=== PATIENT | male | born 1975 | race Caucasian/White ===

== ENCOUNTER → 2018-10-24 | Outpatient (CLI) | payer BC ==
[2018-10-24 18:31] LABS: BASO # 0.1 10^3/uL (0.0-0.2); BASO % 0.7 % (0.0-1.0); EOS # 0.6 10^3/uL (0.0-0.50); EOS % 6.6 % (0.0-3.0); HEMATOCRIT 43.9 % (42.0-52.0); HEMOGLOBIN 14.3 g/dl (13.5-17.5); LYMPH # 2.1 10^3/uL (1.5-4.5); LYMPH % 21.8 % (24.0-44.0); MEAN CORPUSCULAR HEMOGLOBIN 31.2 pg (27.0-33.0); MEAN CORPUSCULAR HGB CONC 32.6 g/dl (32.0-36.5); MEAN CORPUSCULAR VOLUME 95.6 fl (80.0-96.0); MONO # 0.8 10^3/uL (0.0-0.8); MONO % 8.4 % (0.0-5.0); NEUTROPHILS # 5.9 10^3/uL (1.8-7.7); NEUTROPHILS % 62.2 % (36.0-66.0); PLATELET COUNT, AUTOMATED 331 10^3/uL (150-450); RED BLOOD COUNT 4.59 10^6/uL (4.30-6.10); WHITE BLOOD COUNT 9.5 10^3/uL (4.0-10.0)
[2018-10-24 18:42] LABS: ALBUMIN 3.9 GM/DL (3.2-5.2); ALT/SGPT 42 U/L (12-78); BILIRUBIN,TOTAL 0.4 MG/DL (0.2-1.0); BLOOD UREA NITROGEN 19 MG/DL (7-18); CALCIUM LEVEL 8.7 MG/DL (8.5-10.1); CARBON DIOXIDE LEVEL 30 MEQ/L (21-32); CHLORIDE LEVEL 106 MEQ/L (98-107); CHOLESTEROL LEVEL 181 MG/DL (<200); CHOLESTEROL RISK RATIO 2.784 (<5); CREATININE FOR GFR 1.07 MG/DL (0.70-1.30); FREE T4 0.99 NG/DL (0.76-1.46); GLOMERULAR FILTRATION RATE > 60.0 (>60); GLUCOSE, FASTING 90 MG/DL (70-100); HDL CHOLESTEROL 65 MG/DL (>40); LDL CHOLESTEROL 104 MG/DL (<100); NON-HDL-C 116 MG/DL; POTASSIUM SERUM 4.5 MEQ/L (3.5-5.1); SODIUM LEVEL 142 MEQ/L (136-145); TOTAL PROTEIN 7.2 GM/DL (6.4-8.2); TRIGLYCERIDES LEVEL 60 MG/DL (<150)
== END ==
LOC: M ADAMS 15:00
PROVIDERS: ATTEND Family Medicine
DX: Z00.00 Encounter for general adult medical examination without abnormal findings (principal); K21.9 Gastro-esophageal reflux disease without esophagitis

== ENCOUNTER → 2018-11-28 | Outpatient (CLI) | payer BC ==
--- NOTE | 2018-11-28 11:53 | REP ---
CHEST PA AND LATERAL: 11/28/2018. Clinical history: Chest discomfort. Comparison: 05/07/2006. Findings: Two-view show the lungs well inflated and clear. The heart, mediastinal and hilar contours are normal. Aorta and airway intact. I see no significant peribronchial thickening. Bones show no compression deformity of focal lesion in the spine. Chest bony structures without acute finding. No free air under the diaphragm. Impression: 1. No acute cardiopulmonary change. Electronically Signed by Jan Pham MD 11/28/2018 01:42 P
== END ==
LOC: M ADAMS 08:24
PROVIDERS: ATTEND Family Medicine
DX: R07.89 Other chest pain (principal)

== ENCOUNTER → 2019-04-24 | Outpatient (CLI) | payer BC ==
[2019-04-24 17:03] LABS: ALBUMIN 3.8 GM/DL (3.2-5.2); ALT/SGPT 39 U/L (12-78); BILIRUBIN,DIRECT 0.1 MG/DL (0.0-0.2); BILIRUBIN,TOTAL 0.7 MG/DL (0.2-1.0); BLOOD UREA NITROGEN 21 MG/DL (7-18); CALCIUM LEVEL 8.9 MG/DL (8.5-10.1); CARBON DIOXIDE LEVEL 29 MEQ/L (21-32); CHLORIDE LEVEL 109 MEQ/L (98-107); CREATININE FOR GFR 0.96 MG/DL (0.70-1.30); GLOMERULAR FILTRATION RATE > 60.0 (>60); GLUCOSE, FASTING 86 MG/DL (70-100); PHOSPHORUS LEVEL 3.4 MG/DL (2.5-4.9); POTASSIUM SERUM 4.1 MEQ/L (3.5-5.1); SODIUM LEVEL 141 MEQ/L (136-145); TOTAL PROTEIN 7.2 GM/DL (6.4-8.2)
[2019-04-24 17:28] LABS: HEMATOCRIT 45.1 % (42.0-52.0); HEMOGLOBIN 14.8 g/dl (13.5-17.5); MEAN CORPUSCULAR HEMOGLOBIN 30.8 pg (27.0-33.0); MEAN CORPUSCULAR HGB CONC 32.8 g/dl (32.0-36.5); PLATELET COUNT, AUTOMATED 302 10^3/uL (150-450); WHITE BLOOD COUNT 6.2 10^3/uL (4.0-10.0)
== END ==
LOC: M ADAMS 09:08
PROVIDERS: ATTEND Podiatrist Foot & Ankle Surgery
DX: B35.1 Tinea unguium (principal); Z79.899 Other long term (current) drug therapy

== ENCOUNTER → 2020-02-26 | Outpatient (CLI) | payer BC ==
--- NOTE | 2020-02-26 10:23 | REP ---
Paranasal sinus series: Four views. History: Chronic sinusitis. Findings: Four views of the paranasal sinuses demonstrate intact orbital margins. Paranasal sinus margins are intact. Frontal sinuses and maxillary sinuses are clear. There is no evidence of ethmoid or sphenoid sinus opacification. Mastoid aeration is normal and symmetric. Bony nasal septum is midline and nasal turbinate soft tissues appear symmetric. Impression: Negative radiographs of the paranasal sinuses. Electronically Signed by Taj Scruggs MD 02/26/2020 10:15 A
== END ==
LOC: M ADAMS 09:04
PROVIDERS: ATTEND Physician Assistant
DX: J32.9 Chronic sinusitis, unspecified (principal)

== ENCOUNTER → 2021-04-16 | Outpatient (REF) | payer BC ==
[2021-04-16 13:03] LABS: BASO # 0.1 10^3/uL (0.0-0.2); BASO % 1.3 % (0.0-1.0); EOS # 0.6 10^3/uL (0.0-0.5); EOS % 9.7 % (0.0-3.0); HEMOGLOBIN 14.2 g/dl (13.5-17.5); LYMPH # 2.3 10^3/uL (1.5-5.0); LYMPH % 36.9 % (24.0-44.0); MEAN CORPUSCULAR HEMOGLOBIN 30.7 pg (27.0-33.0); MEAN CORPUSCULAR VOLUME 92.9 fl (80.0-96.0); MONO # 0.7 10^3/uL (0.0-0.8); NEUTROPHILS # 2.5 10^3/uL (1.5-8.5); NEUTROPHILS % 40.9 % (36.0-66.0); PLATELET COUNT, AUTOMATED 289 10^3/uL (150-450); RED BLOOD COUNT 4.63 10^6/uL (4.30-6.10); WHITE BLOOD COUNT 6.2 10^3/uL (4.0-10.0)
[2021-04-16 13:28] LABS: ALBUMIN 3.9 GM/DL (3.2-5.2); ALT/SGPT 35 U/L (12-78); BILIRUBIN,TOTAL 0.5 MG/DL (0.2-1.0); BLOOD UREA NITROGEN 24 MG/DL (7-18); CARBON DIOXIDE LEVEL 30 MEQ/L (21-32); CHLORIDE LEVEL 107 MEQ/L (98-107); CHOLESTEROL LEVEL 189 MG/DL (<200); CHOLESTEROL RISK RATIO 3.098 (<5); CREATININE FOR GFR 0.92 MG/DL (0.70-1.30); GLOMERULAR FILTRATION RATE > 60.0 (>60); GLUCOSE, FASTING 88 MG/DL (70-100); HDL CHOLESTEROL 61 MG/DL (>40); LDL CHOLESTEROL 115 MG/DL (<100); NON-HDL-C 128 MG/DL; POTASSIUM SERUM 4.4 MEQ/L (3.5-5.1); SODIUM LEVEL 140 MEQ/L (136-145); TOTAL PROTEIN 7.1 GM/DL (6.4-8.2); TRIGLYCERIDES LEVEL 64 MG/DL (<150)
== END ==
LOC: M SFHCADAM 09:53
PROVIDERS: ATTEND Family Medicine
DX: J30.89 Other allergic rhinitis (principal); B36.0 Pityriasis versicolor; B35.6 Tinea cruris; L84 Corns and callosities

== ENCOUNTER → 2021-05-22 | Outpatient (REF) | payer BC ==
[2021-05-22 14:03] LABS: C REACTIVE PROTEIN QUANTITATIV < 0.30 MG/DL (0.00-0.30); RHEUMATOID FACTOR QUANT < 10.0 IU/ML (<15.0)
[2021-05-23 16:09] LABS: ANTINUCLEAR ANTIBODIES DIRECT Negative (Negative); Lyme Disease IgG/IgM Antibodie <0.91 ISR (0.00-0.90); Lyme Disease IgM Ab Quantitati <0.80 index (0.00-0.79)
== END ==
LOC: M SFHCADAM 08:02
PROVIDERS: ATTEND Family Medicine
DX: M25.59 Pain in other specified joint (principal); W57.XXXA Bitten or stung by nonvenomous insect and other nonvenomous arthropods, initial encounter; R53.83 Other fatigue

== ENCOUNTER → 2022-03-29 | Outpatient (REF) | payer BC ==
[2022-03-29 13:23] LABS: BASO # 0.1 10^3/uL (0.0-0.2); BASO % 1.2 % (0.0-1.0); EOS # 0.5 10^3/uL (0.0-0.5); EOS % 8.6 % (0.0-3.0); HEMOGLOBIN 15.2 g/dl (13.5-17.5); LYMPH # 1.9 10^3/uL (1.5-5.0); MEAN CORPUSCULAR HGB CONC 33.8 g/dl (32.0-36.5); MEAN CORPUSCULAR VOLUME 91.8 fl (80.0-96.0); MONO # 0.6 10^3/uL (0.0-0.8); MONO % 10.3 % (2.0-8.0); NEUTROPHILS # 2.8 10^3/uL (1.5-8.5); NEUTROPHILS % 47.7 % (36.0-66.0); PLATELET COUNT, AUTOMATED 301 10^3/uL (150-450); WHITE BLOOD COUNT 5.9 10^3/uL (4.0-10.0)
[2022-03-29 13:37] LABS: ALBUMIN 4.1 GM/DL (3.2-5.2); ALT/SGPT 38 U/L (12-78); BILIRUBIN,TOTAL 0.6 MG/DL (0.2-1.0); BLOOD UREA NITROGEN 21 MG/DL (7-18); CALCIUM LEVEL 9.4 MG/DL (8.5-10.1); CARBON DIOXIDE LEVEL 27 MEQ/L (21-32); CHLORIDE LEVEL 109 MEQ/L (98-107); CHOLESTEROL LEVEL 203 MG/DL (<200); CREATININE FOR GFR 1.05 MG/DL (0.70-1.30); GLOMERULAR FILTRATION RATE > 60.0 (>60); GLUCOSE, FASTING 98 MG/DL (70-100); HDL CHOLESTEROL 58 MG/DL (>40); LDL CHOLESTEROL 132 MG/DL (<100); NON-HDL-C 145 MG/DL; POTASSIUM SERUM 4.1 MEQ/L (3.5-5.1); RHEUMATOID FACTOR QUANT < 10.0 IU/ML (<15.0); SODIUM LEVEL 142 MEQ/L (136-145); TOTAL PROTEIN 7.4 GM/DL (6.4-8.2); TRIGLYCERIDES LEVEL 63 MG/DL (<150)
[2022-03-29 14:03] LABS: ERYTHROCYTE SEDIMENTATION RATE 5 mm/hr (0-15)
[2022-03-29 19:33] LABS: HEPATITIS B SURFACE ANTIBODY NEGATIVE (POSITIVE)
[2022-03-29 19:38] LABS: HEPATITIS B SURFACE ANTIGEN NEGATIVE (NEGATIVE)
[2022-03-30 19:07] LABS: ANTINUCLEAR ANTIBODIES DIRECT Negative (Negative); HEPATITIS B CORE ANTIBODY IGG Negative (Negative)
== END ==
LOC: M SFHCADAM 07:56
PROVIDERS: ATTEND Family Medicine
DX: M25.50 Pain in unspecified joint (principal); Z00.00 Encounter for general adult medical examination without abnormal findings; Z11.59 Encounter for screening for other viral diseases

== ENCOUNTER 2022-07-07 09:24 | Emergency (ER) | payer BC ==
[~2022-07-07] VITALS: Ht 157.5 cm; Wt 88.6 kg
[2022-07-07] MEDS ORDERED: OMEP40CA5 PO (09:34)
[2022-07-07 10:35] LABS: BACTERIA, URINE SMALL AMOUNT; HYALINE CAST, URINE NONE SEEN /lpf (0-1); MUCUS, URINE SMALL AMOUNT (NEGATIVE); RBC, URINE TNTC /hpf (0-3); SQUAMOUS EPITHELIAL CELL URINE SMALL AMOUNT /hpf (SMALL AMT)
[2022-07-07] MEDS ORDERED: FLOM0.4C39 PO (11:19)
[2022-07-07] MEDS ORDERED: KETO10TAB PO (11:19)
[2022-07-07 11:25] VITALS: BP 106/68
== END 2022-07-07 11:31 | disposition home or self-care (01) ==
LOC: M ED 09:24
DX: N21.1 Calculus in urethra (principal); K21.9 Gastro-esophageal reflux disease without esophagitis

== ENCOUNTER → 2022-07-22 | Outpatient (CLI) | payer BC ==
[~2022-07-22] MED LIST: FLOM0.4C39 PO; KETO10TAB PO; OMEP40CA5 PO
== END ==
LOC: M ADAMS 16:14
PROVIDERS: ATTEND Physician Assistant
DX: N20.1 Calculus of ureter (principal)

== ENCOUNTER → 2022-08-06 | Outpatient (CLI) | payer BC | LOC: M ADAMS 15:46 | PROVIDERS: ATTEND Physician Assistant | DX: N13.2 Hydronephrosis with renal and ureteral calculous obstruction (principal); M47.9 Spondylosis, unspecified ==

== ENCOUNTER → 2022-09-27 | Outpatient (CLI) | payer BC | LOC: M RAD 13:54 | PROVIDERS: ATTEND Family Medicine | DX: N13.2 Hydronephrosis with renal and ureteral calculous obstruction (principal); M51.36 Other intervertebral disc degeneration, lumbar region ==

== ENCOUNTER → 2022-11-07 | Outpatient (CLI) | payer BC | LOC: M SOG 08:40 | PROVIDERS: ATTEND Orthopaedic Surgery | DX: M54.50 Low back pain, unspecified (principal); Z53.8 Procedure and treatment not carried out for other reasons ==

== ENCOUNTER → 2022-11-17 | Outpatient (REF) | payer BC | LOC: M LAB REF 19:38 | PROVIDERS: ATTEND Physician Assistant | DX: R30.0 Dysuria (principal) ==

== ENCOUNTER → 2022-12-03 | Outpatient (CLI) | payer BC | LOC: M SOG 15:00 | PROVIDERS: ATTEND Orthopaedic Surgery | DX: M54.50 Low back pain, unspecified (principal); M47.817 Spondylosis without myelopathy or radiculopathy, lumbosacral region ==

== ENCOUNTER → 2023-05-25 | Outpatient (REF) | payer BC | LOC: M SFHCADAM 12:39 | PROVIDERS: ATTEND Family Medicine | DX: N20.0 Calculus of kidney (principal) ==

== ENCOUNTER 2023-12-04 09:05 | Emergency (ER) | payer OTHER, BC ==
[~2023-12-04] VITALS: Ht 177.8 cm; Wt 93.5 kg
[2023-12-04] MEDS ORDERED: CETI-24 (09:13)
[2023-12-04] MEDS ORDERED: FLUTISP (09:13)
[2023-12-04] MEDS ORDERED: CYCL-707 PO (11:05)
[2023-12-04] MEDS ORDERED: NAPR-837 PO (11:05)
[2023-12-04 11:13] VITALS: BP 112/71; TEMP 97.7; O2SAT 97
== END 2023-12-04 11:15 | disposition home or self-care (01) ==
LOC: M ED 09:05
DX: S23.3XXA Sprain of ligaments of thoracic spine, initial encounter (principal); V86.52XA Driver of snowmobile injured in nontraffic accident, initial encounter; K21.9 Gastro-esophageal reflux disease without esophagitis; Z79.83 Long term (current) use of bisphosphonates; Z79.1 Long term (current) use of non-steroidal anti-inflammatories (NSAID); Z79.899 Other long term (current) drug therapy; Y92.009 Unspecified place in unspecified non-institutional (private) residence as the place of occurrence of the external cause; Y93.89 Activity, other specified; Y99.9 Unspecified external cause status

== ENCOUNTER → 2023-12-24 | Outpatient (REF) | payer BC ==
[~2023-12-24] MED LIST changes: +CETI-24; +CYCL-707 PO; +FLUTISP; +NAPR-837 PO
[2023-12-24 14:07] LABS: BASO # 0.1 10^3/uL (0.0-0.2); EOS # 0.6 10^3/uL (0.0-0.5); EOS % 9.1 % (0.0-3.0); HEMATOCRIT 44.9 % (42.0-52.0); HEMOGLOBIN 14.8 g/dl (13.5-17.5); LYMPH # 2.1 10^3/uL (1.5-5.0); LYMPH % 34.6 % (24.0-44.0); MEAN CORPUSCULAR HEMOGLOBIN 30.9 pg (27.0-33.0); MEAN CORPUSCULAR VOLUME 93.7 fl (80.0-96.0); MONO # 0.5 10^3/uL (0.0-0.8); MONO % 8.8 % (2.0-8.0); NEUTROPHILS # 2.8 10^3/uL (1.5-8.5); NEUTROPHILS % 46.2 % (36.0-66.0); PLATELET COUNT, AUTOMATED 315 10^3/uL (150-450); RED BLOOD COUNT 4.79 10^6/uL (4.30-6.10); WHITE BLOOD COUNT 6.2 10^3/uL (4.0-10.0)
[2023-12-24 14:40] LABS: ALBUMIN 3.9 G/DL (3.2-5.2); ALKALINE PHOSPHATASE 92 U/L (46-116); ALT/SGPT 42 U/L (7.0-40); AST/SGOT 27 U/L (<34); BILIRUBIN,TOTAL 0.5 MG/DL (0.3-1.2); BLOOD UREA NITROGEN 20 MG/DL (9-23); CALCIUM LEVEL 9.1 MG/DL (8.5-10.1); CARBON DIOXIDE LEVEL 30 MMOL/L (20-31); CHLORIDE LEVEL 107 MMOL/L (98-107); CHOLESTEROL LEVEL 209 MG/DL (<200); CHOLESTEROL RISK RATIO 3.84 (<5); CREATININE FOR GFR 1.05 MG/DL (0.70-1.30); GLOMERULAR FILTRATION RATE > 60.0 (>56); GLUCOSE, FASTING 88 MG/DL (60-100); HDL CHOLESTEROL 54.4 MG/DL (>40); LDL CHOLESTEROL 136.4 MG/DL (<100); NON-HDL-C 154.6 MG/DL; POTASSIUM SERUM 4.4 MMOL/L (3.5-5.1); SODIUM LEVEL 138 MMOL/L (136-145); TRIGLYCERIDES LEVEL 91 MG/DL (<150)
[2023-12-24 14:41] LABS: THYROID STIMULATING HORMONE 1.669 uIU/ML (0.55-4.78)
== END ==
LOC: M SFHCADAM 08:05
PROVIDERS: ATTEND Family Medicine
DX: Z00.00 Encounter for general adult medical examination without abnormal findings (principal)

== ENCOUNTER 2023-12-30 14:45 | Emergency (ER) | payer OTHER, BC ==
[~2023-12-30] VITALS: Ht 177.8 cm; Wt 94.4 kg
[2023-12-30] MEDS ORDERED: methylPREDNISolone 125MG 2ML VIAL IV ONE (16:45)
[2023-12-30] MEDS ORDERED: KETOROLAC 30 MG/ML 1ML VIAL IV ONE (16:45)
[2023-12-30] MEDS: methocarbamoL 500 MG TAB PO ONE (17:29)
[2023-12-30] MEDS: IBUPROFEN 600MG TAB PO ONE (17:29)
[2023-12-30] MEDS: predniSONE 20 MG TAB PO ONE (17:29)
[2023-12-30] MEDS ORDERED: METH-1164 PO (19:38)
[2023-12-30] MEDS ORDERED: IBUP-1022 PO (19:38)
[2023-12-30] MEDS ORDERED: PRED20TA PO (19:38)
[2023-12-30 19:47] VITALS: BP 135/87; TEMP 97.4; O2SAT 98
== END 2023-12-30 20:02 | disposition home or self-care (01) ==
LOC: M ED 14:45
DX: M51.86 Other intervertebral disc disorders, lumbar region (principal); M48.061 Spinal stenosis, lumbar region without neurogenic claudication; K21.9 Gastro-esophageal reflux disease without esophagitis; F17.200 Nicotine dependence, unspecified, uncomplicated; Z87.442 Personal history of urinary calculi; Z88.0 Allergy status to penicillin; Z79.83 Long term (current) use of bisphosphonates; Z79.52 Long term (current) use of systemic steroids; Z79.899 Other long term (current) drug therapy
CPT/HCPCS: 72148; 99284; J7512

== ENCOUNTER → 2025-03-01 | Outpatient (REF) | payer BC ==
[~2025-03-01] MED LIST changes: +IBUP-1022 PO; +METH-1164 PO; +PRED20TA PO
[2025-03-01 13:39] LABS: BASO # 0.1 10^3/uL (0.0-0.2); BASO % 0.9 % (0.0-1.0); EOS # 0.5 10^3/uL (0.0-0.5); EOS % 9.2 % (0.0-3.0); HEMATOCRIT 42.1 % (42.0-52.0); LYMPH # 1.6 10^3/uL (1.5-5.0); LYMPH % 30.5 % (24.0-44.0); MEAN CORPUSCULAR HGB CONC 33.3 g/dl (32.0-36.5); MEAN CORPUSCULAR VOLUME 93.3 fl (80.0-96.0); MONO # 0.5 10^3/uL (0.0-0.8); MONO % 8.8 % (2.0-8.0); NEUTROPHILS # 2.7 10^3/uL (1.5-8.5); NEUTROPHILS % 50.4 % (36.0-66.0); PLATELET COUNT, AUTOMATED 306 10^3/uL (150-450); RED BLOOD COUNT 4.51 10^6/uL (4.30-6.10); WHITE BLOOD COUNT 5.4 10^3/uL (4.0-10.0)
[2025-03-01 14:06] LABS: PSA SCREENING 1.17 NG/ML (< 4.00)
[2025-03-01 14:10] LABS: THYROID STIMULATING HORMONE 2.286 uIU/ML (0.55-4.78)
[2025-03-01 14:15] LABS: ALKALINE PHOSPHATASE 63 U/L (40-129); ALT/SGPT 38 U/L (7.0-40); AST/SGOT 32 U/L (<34); BILIRUBIN,TOTAL 0.5 MG/DL (0.3-1.2); BLOOD UREA NITROGEN 27 MG/DL (9-23); CALCIUM LEVEL 9.2 MG/DL (8.5-10.1); CARBON DIOXIDE LEVEL 25 MMOL/L (20-31); CHLORIDE LEVEL 107 MMOL/L (98-107); CHOLESTEROL LEVEL 190 MG/DL (<200); CHOLESTEROL RISK RATIO 2.84 (<5); CREATININE FOR GFR 0.97 MG/DL (0.70-1.30); GLOMERULAR FILTRATION RATE > 90.0 (>56); GLUCOSE, FASTING 94 MG/DL (60-100); HDL CHOLESTEROL 66.9 MG/DL (>40); LDL CHOLESTEROL 111.5 MG/DL (<100); NON-HDL-C 123.1 MG/DL; POTASSIUM SERUM 4.2 MMOL/L (3.5-5.1); SODIUM LEVEL 142 MMOL/L (136-145); TOTAL PROTEIN 7.1 G/DL (5.7-8.2); TRIGLYCERIDES LEVEL 58 MG/DL (<150)
== END ==
LOC: M SFHCADAM 07:41
PROVIDERS: ATTEND Family Medicine
DX: Z00.00 Encounter for general adult medical examination without abnormal findings (principal); R35.1 Nocturia
CPT/HCPCS: 80053; 80061; 84443; 85025; G0103

== ENCOUNTER → 2025-06-21 | Outpatient (CLI) | payer BC ==
[~2025-06-21] MED LIST changes: -FLOM0.4C39 PO; +TAMS-18 PO
== END ==
LOC: M SOG 06:47
PROVIDERS: ATTEND Orthopaedic Surgery
DX: M25.532 Pain in left wrist (principal); M25.531 Pain in right wrist